=== PATIENT | male | born 1945 | race Caucasian/White ===

== ENCOUNTER 2018-04-01 11:09 | Emergency (ER) | payer OTHER ==
[2018-04-01] MEDS ORDERED: METHYLPREDNISOLONE 125 MG INJ ONE (12:15)
[2018-04-01] MEDS ORDERED: CEFTRIAXONE/SWI 1gm 1 GM/10 ML SYR ONE (12:16)
[2018-04-01] MEDS ORDERED: LEVALBUTEROL 1.25 MG/3 ML NEB ONE (12:16)
[2018-04-01] MEDS ORDERED: NA CHLORIDE 0.9% 1,000 ML ONE (12:16)
[2018-04-01 12:31] LABS: Absolute Lymphocytes (CBC) 1.1 K/uL (0.7-4.9); Absolute Monocytes 1.4 K/uL (0.1-1.3); Absolute Neutrophil 13.2 K/uL (1.8-8.0); Basophils % 0.1 % (0-1.3); Lymphocytes % 7.2 % (15.3-44.8); MCH 29.9 pg (27.0-35.0); MCV 88.7 fL (80-100); MPV 9.6 fL (7.6-11.3); Monocytes % 9.1 % (3.3-12.3); RBC Red Blood Cell Count 4.96 M/uL (4.33-5.43)
[2018-04-01 12:43] LABS: Albumin 3.6 g/dL (3.4-5.0); Bilirubin Direct 0.3 mg/dL (0-0.2); Bilirubin Total 0.8 mg/dL (0.2-1.0); Magnesium 2.5 mg/dL (1.8-2.4); Potassium 4.2 mmol/L (3.5-5.1); Protein, Total 7.8 g/dL (6.4-8.2)
--- NOTE | 2018-04-01 12:59 | RAD REPORT ---
EXAM DESCRIPTION: Yudelka Single View04/01/2018 12:19 pm CLINICAL HISTORY: cough COMPARISON: none FINDINGS: The lungs are moderately hyperaerated The lungs appear clear of acute infiltrate. The heart is normal size IMPRESSION: COPD without visualization of an acute abnormality
--- NOTE | 2018-04-01 13:55 | ER ---
Nurse's Notes [facility] Name: Rajesh Steen Age: 72 yrs Sex: Male : 1945 Arrival Date: 04/01/2018 Time: 11:13 Bed 8 Private MD: None, None Diagnosis: Acute kidney failure;Non-ST elevation (NSTEMI) myocardial infarction;Chronic obstructive pulmonary disease with (acute) exacerbation;Elevated white blood cell count;Weakness Presentation: 04/01 11:34 Presenting complaint: pts granddaughter states "he hates doctors, he has been sick for tw2 3 or 4 days now, n/v and labored breathing and has a cough but feels he cant get anything up". Transition of care: patient was not received from another setting of care. Onset of symptoms was April 01, 2018. Risk Assessment: Do you want to hurt yourself or someone else? Patient reports no desire to harm self or others. Initial Sepsis Screen: Does the patient meet any 2 criteria? RR > 20 per min. HR > 90 bpm. Does the patient have a suspected source of infection? Yes: Other: unproductive cough, wheezing, feels "i cant cough it up", sob, increased work of breathing If YES to both, name of provider notified: Peter Wilder MD. Care prior to arrival: None. 11:34 Acuity: MICHELLE 3 tw2 11:34 Method Of Arrival: Wheelchair tw2 Triage Assessment: 11:36 General: Appears distressed, Behavior is appropriate for age. Respiratory: Onset: The tw2 symptoms/episode began/occurred 3 or 4 days, the patient has moderate shortness of breath. Historical: - Allergies: 11:29 No Known Allergies; tw2 - Home Meds: 11:29 "herbal supplements and vitamins" [Active]; tw2 - PMHx: 11:29 Hypertension; Hernia; tw2 - PSHx: 11:29 None; tw2 - Immunization history:: Adult Immunizations. - Social history:: Smoking status: Smoking status: Patient uses tobacco products, smokes one pack cigarettes per day. - Ebola Screening: : Patient denies travel to an Ebola-affected area in the 21 days before illness onset. Screenin:20 Abuse screen: Denies threats or abuse. Nutritional screening: No deficits noted. tw2 Tuberculosis screening: No symptoms or risk factors identified. Fall Risk None identified. Assessment: 11:31 General: Appears distressed, slender. Pain: Denies pain. Neuro: Level of Consciousness tw2 is awake, alert, obeys commands, Oriented to person, place, time, situation. Cardiovascular: Denies chest pain, shortness of breath, Heart tones S1 S2 Capillary refill < 3 seconds Patient's skin is warm and dry. Rhythm is irregular. Respiratory: Airway is patent Respiratory effort is even, labored, with retractions, Respiratory pattern is tachypnea Breath sounds with wheezes bilaterally. Respiratory: Reports cough that is non-productive. GI: No signs and/or symptoms were reported involving the gastrointestinal system. Abdomen is flat, Bowel sounds present X 4 quads. : No signs and/or symptoms were reported regarding the genitourinary system. EENT: No signs and/or symptoms were reported regarding the EENT system. Derm: No signs and/or symptoms reported regarding the dermatologic system. Musculoskeletal: Range of motion: intact in all extremities. 12:21 Reassessment: Patient appears in no apparent distress at this time. No changes from tw2 previously documented assessment. Patient and/or family updated on plan of care and expected duration. Pain level reassessed. Patient is alert, oriented x 3, equal unlabored respirations, skin warm/dry/pink. 13:22 Reassessment: Patient appears in no apparent distress at this time. No changes from tw2 previously documented assessment. Patient and/or family updated on plan of care and expected duration. Pain level reassessed. Patient is alert, oriented x 3, equal unlabored respirations, skin warm/dry/pink. 13:59 Reassessment: recollect on lab, 2 attempts via lab , 2 attempts via [employer] tw2 unsuccessful, provider notified. waiting PTT collection prior to heparin, charge nurse notified and attempting at this time. 14:02 Reassessment: Patient appears in no apparent distress at this time. No changes from tw2 previously documented assessment. Patient and/or family updated on plan of care and expected duration. Pain level reassessed. Patient is alert, oriented x 3, equal unlabored respirations, skin warm/dry/pink. Vital Signs: 11:29 BP 123 / 94; Pulse 113; Resp 28; Temp 97.7(O); Pulse Ox 98% on R/A; Weight 65.77 kg tw2 (R); Height 6 ft. 0 in. (182.88 cm); Pain 0/10; 11:48 BP 112 / 92; Pulse 109; Resp 24; Pulse Ox 100% on 2 lpm NC; tw2 12:21 BP 119 / 96; Pulse 96; Resp 22; Pulse Ox 98% on Nebulizer Mask; tw2 13:30 BP 111 / 86; Pulse 96; Resp 17; Pulse Ox 100% on R/A; tw2 15:10 BP 115 / 89; Pulse 98; Resp 19; Pulse Ox 100% on R/A; tw2 11:29 Body Mass Index 19.67 (65.77 kg, 182.88 cm) tw2 11:29 pt placed on o2 via nc at 2L d/d increased WOB, will continue to monitor tw2 11:48 pt states "i feel better on the oxygen" tw2 ED Course: 11:13 Patient arrived in ED. mr 11:14 None, None is Private Physician. mr 11:20 Sylvia Tadeo RN is Primary Nurse. tw2 11:29 Peter Wilder MD is Attending Physician. kdr 11:30 Arm band placed on. tw2 11:30 Placed in gown. Bed in low position. Adult w/ patient. surveillance monitor on. Pulse ox on. tw2 NIBP on. 11:36 Triage completed. tw2 11:38 Missed attempt(s): 18 gauge in right antecubital area. per CORWIN Hawkins. tw2 12:05 Inserted saline lock: 22 gauge in left antecubital area, using aseptic technique. jb1 12:18 XRAY Chest (1 view) In Process Unspecified. EDMS 13:43 Attending Physician role handed off by Peter Wilder MD rashad 13:43 Stanislaw Hawkins MD is Attending Physician. rashad 15:05 Pereira cath inserted, using sterile technique, 16 Fr., by nv, balloon inflated, Patient ae1 tolerated well. 15:18 No provider procedures requiring assistance completed. Patient transferred, IV remains tw2 in place. Administered Medications: Discontinued: NS 0.9% 250 ml IV at bolus once; Then 80 ml/hr 12:13 Drug: Xopenex (3) 1.25 mg Route: Inhalation; ae1 12:15 Drug: SOLU-Medrol 60 mg Route: IVP; Site: left forearm; ae1 13:48 Follow up: Response: No adverse reaction tw2 12:18 Drug: NS 0.9% 250 ml Route: IV; Rate: bolus; Site: left forearm; ae1 12:18 Drug: Rocephin - (cefTRIAXone) 1 grams Route: IVPB; Infused Over: 30 mins; Site: left ae1 forearm; 13:52 CANCELLED (Duplicate Order): Lasix 20 mg IVP once rashad 14:20 Drug: ProTONIX 40 mg Route: IVP; Site: left forearm; tw2 15:18 Follow up: Response: No adverse reaction tw2 14:20 Drug: PlaVIX 300 mg Route: PO; tw2 15:00 Follow up: Response: No adverse reaction tw2 14:20 Drug: Lasix 40 mg Route: IVP; Site: left forearm; tw2 15:00 Follow up: Response: No adverse reaction tw2 14:22 Drug: Aspirin Chewable Tablet 324 mg Route: PO; tw2 15:18 Follow up: Response: No adverse reaction tw2 14:23 Drug: Heparin (TN-Bolus No thrombolytic) - HEParin 60 units/kg {Co-Signature: ae1 tw2 (Juaquin Tom RN).} Route: IVP; Site: left forearm; 15:18 Follow up: Response: No adverse reaction tw2 14:25 Drug: Heparin (TN Drip) 12 units/kg/hr - (HEParin 02118 units, D5W 500 ml) tw2 {Co-Signature: ae1 (Juaquin Tom RN).} Route: IV; Rate: calculated rate; Site: left forearm; 15:18 Follow up: IV Status: Infusion continued upon transfer ae1 Outcome: 13:55 ER care complete, transfer ordered by . rashad 15:18 Patient left the ED. ae1 15:18 Transferred by ground EMS to [facility]. tw2 15:18 Condition: stable 15:18 Instructed on the need for transfer. Signatures: Dispatcher [employer] James Doyle jb1 Stanislaw Hawkins MD MD cha Rittger, Kevin, MD MD kdr Rivera, Maria mr Wise, Tara, RN RN tw2 Juaquin Tom RN RN ae1 Juaquin Negro RN ae1 Corrections: (The following items were deleted from the chart) 14:05 13:59 Reassessment: recollect on lab, 2 attempts via lab , 2 attempts via [employer] tw2 unsuccessful, provider notified. waiting PTT collection prior to heparin tw2 15:11 15:10 BP 111 / 86; Pulse 96bpm; Resp 17bpm; Pulse Ox 100% RA; tw2 tw2
--- NOTE | 2018-04-01 13:55 | EDPHYS ---
Physician Documentation [facility] Name: Rajesh Steen Age: 72 yrs Sex: Male : 1945 Arrival Date: 04/01/2018 Time: 11:13 Bed 8 Private MD: None, None ED Physician Stanislaw Hawkins HPI: 04/01 12:07 This 72 yrs old Male presents to ER via Wheelchair with complaints of kdr Breathing Difficulty, Weakness, Vomiting/Diarrhea. 12:07 The patient has shortness of breath at rest, with light activity. Onset: The kdr symptoms/episode began/occurred The patient first became ill last Tuesday. 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 Since then, he has had worsening SOB and congestion. He has also had subjective fever, no sputum. Duration: The symptoms are continuous, and are steadily getting worse. The patient's shortness of breath is aggravated by coughing, exertion, light activity, supine position. Associated signs and symptoms: Pertinent positives: non-productive cough, diaphoresis, fever, nausea, vomiting, Diarrhea. Severity of symptoms: At their worst the symptoms were moderate in the emergency department the symptoms are unchanged. The patient has not experienced similar symptoms in the past. The patient has not recently seen a physician. Historical: - Allergies: 11:29 No Known Allergies; tw2 - Home Meds: 11:29 "herbal supplements and vitamins" [Active]; tw2 - PMHx: 11:29 Hypertension; Hernia; tw2 - PSHx: 11:29 None; tw2 - Immunization history:: Adult Immunizations. - Social history:: Smoking status: Smoking status: Patient uses tobacco products, smokes one pack cigarettes per day. - Ebola Screening: : Patient denies travel to an Ebola-affected area in the 21 days before illness onset. ROS: 12:07 Constitutional: Negative for weight loss - he has had subjective fever and rigors Eyes: kdr Negative for injury, pain, redness, and discharge, ENT: Negative for injury, pain, and discharge, Neck: Negative for injury, pain, and swelling, Abdomen/GI: Negative for abdominal pain, nausea, vomiting, diarrhea, and constipation, Back: Negative for injury and pain, : Negative for injury, bleeding, discharge, and swelling, MS/Extremity: Negative for injury and deformity, Skin: Negative for injury, rash, and discoloration, Neuro: Negative for headache, weakness, numbness, tingling, and seizure activity. Psych: Negative for depression, anxiety, suicide ideation, homicidal ideation, and hallucinations, Allergy/Immunology: Negative for hives, rash, and allergies, Endocrine: Negative for neck swelling, polydipsia, polyuria, polyphagia, and marked weight changes, Hematologic/Lymphatic: Negative for swollen nodes, abnormal bleeding, and unusual bruising. 12:07 Cardiovascular: Positive for palpitations, Negative for chest pain, edema, orthopnea, paroxysmal nocturnal dyspnea. 12:07 Respiratory: Positive for cough, "sounds productive", dyspnea on exertion, shortness of breath, at rest. wheezing, inspiratory, , Negative for hemoptysis, orthopnea, pleurisy. Exam: 12:07 Constitutional: This is a well developed, well nourished patient who is awake, alert, kdr and in mild distress. Head/Face: Normocephalic, atraumatic. Eyes: Pupils equal round and reactive to light, extra-ocular motions intact. Lids and lashes normal. Conjunctiva and sclera are non-icteric and not injected. Cornea within normal limits. Periorbital areas with no swelling, redness, or edema. Neck: Trachea midline, no thyromegaly or masses palpated, and no cervical lymphadenopathy. Supple, full range of motion without nuchal rigidity, or vertebral point tenderness. No Meningismus. Chest/axilla: Normal chest wall appearance and motion. Nontender with no deformity. No lesions are appreciated. Abdomen/GI: Soft, non-tender, with normal bowel sounds. No distension or tympany. No guarding or rebound. No evidence of tenderness throughout. Back: No spinal tenderness. No costovertebral tenderness. Full range of motion. Skin: Warm, dry with normal turgor. Normal color with no rashes, no lesions, and no evidence of cellulitis. MS/ Extremity: Pulses equal, no cyanosis. Neurovascular intact. Full, normal range of motion. Neuro: Awake and alert, GCS 15, oriented to person, place, time, and situation. Cranial nerves II-XII grossly intact. Motor strength 5/5 in all extremities. Sensory grossly intact. Cerebellar exam normal. Normal gait. Psych: Awake, alert, with orientation to person, place and time. Behavior, mood, and affect are within normal limits. 12:07 Cardiovascular: Rate: tachycardic, Rhythm: regular, Pulses: no pulse deficits are appreciated, Heart sounds: normal, Edema: is not appreciated. 12:07 Respiratory: mild respiratory distress is noted, Respirations: intercostal retractions, shallow respirations, that is mild, tachypnea, 24 Breath sounds: decreased breath sounds, that are moderate, rhonchi, are scattered, stridor, is not appreciated, + upper airway congestion. wheezing: that is mild, is scattered, is heard diffusely. Vital Signs: 11:29 BP 123 / 94; Pulse 113; Resp 28; Temp 97.7(O); Pulse Ox 98% on R/A; Weight 65.77 kg tw2 (R); Height 6 ft. 0 in. (182.88 cm); Pain 0/10; 11:48 BP 112 / 92; Pulse 109; Resp 24; Pulse Ox 100% on 2 lpm NC; tw2 12:21 BP 119 / 96; Pulse 96; Resp 22; Pulse Ox 98% on Nebulizer Mask; tw2 13:30 BP 111 / 86; Pulse 96; Resp 17; Pulse Ox 100% on R/A; tw2 15:10 BP 115 / 89; Pulse 98; Resp 19; Pulse Ox 100% on R/A; tw2 11:29 Body Mass Index 19.67 (65.77 kg, 182.88 cm) tw2 11:29 pt placed on o2 via nc at 2L d/d increased WOB, will continue to monitor tw2 11:48 pt states "i feel better on the oxygen" tw2 MDM: 12:07 Data reviewed: vital signs, nurses notes, lab test result(s), radiologic studies. kdr Counseling: I had a detailed discussion with the patient and/or guardian regarding: the historical points, exam findings, and any diagnostic results supporting the discharge/admit diagnosis, lab results, radiology results, the need for further work-up and treatment in the hospital. 13:43 Patient medically screened. [facility] 04/01 12:06 Order name: Basic Metabolic Panel; Complete Time: 13:21 kdr 04/01 12:06 Order name: CBC with Diff; Complete Time: 13:21 kdr 04/01 12:06 Order name: LFT's; Complete Time: 13:21 kdr 04/01 12:06 Order name: Magnesium; Complete Time: 13:21 kdr 04/01 12:06 Order name: NT PRO-BNP; Complete Time: 13:21 [facility] 04/01 12:06 Order name: PT-INR [facility] 04/01 12:06 Order name: Ptt, Activated kdr 04/01 12:06 Order name: Troponin (emerg Dept Use Only); Complete Time: 13:21 [facility] 04/01 12:06 Order name: XRAY Chest (1 view); Complete Time: 13:21 [facility] 04/01 12:06 Order name: Blood Culture Adult (2) [facility] 04/01 12:06 Order name: EKG; Complete Time: 12:07 kdr 04/01 12:06 Order name: Cardiac monitoring; Complete Time: 12:12 [facility] 04/01 12:06 Order name: EKG - Nurse/Tech; Complete Time: 12:12 [facility] 04/01 12:06 Order name: IV Saline Lock; Complete Time: 12:12 [facility] 04/01 12:06 Order name: Labs collected and sent; Complete Time: 12:12 [facility] 04/01 12:06 Order name: O2 Per Protocol; Complete Time: 12:12 [facility] 04/01 12:06 Order name: O2 Sat Monitoring; Complete Time: 12:13 [facility] 04/01 13:53 Order name: Bladder Scanner; Complete Time: 15:11 [facility] 04/01 15:10 Order name: Pereira; Complete Time: 15:11 [facility] Administered Medications: Discontinued: NS 0.9% 250 ml IV at bolus once; Then 80 ml/hr 12:13 Drug: Xopenex (3) 1.25 mg Route: Inhalation; ae1 12:15 Drug: SOLU-Medrol 60 mg Route: IVP; Site: left forearm; ae1 13:48 Follow up: Response: No adverse reaction tw2 12:18 Drug: NS 0.9% 250 ml Route: IV; Rate: bolus; Site: left forearm; ae1 12:18 Drug: Rocephin - (cefTRIAXone) 1 grams Route: IVPB; Infused Over: 30 mins; Site: left ae1 forearm; 13:52 CANCELLED (Duplicate Order): Lasix 20 mg IVP once rashad 14:20 Drug: ProTONIX 40 mg Route: IVP; Site: left forearm; tw2 15:18 Follow up: Response: No adverse reaction tw2 14:20 Drug: PlaVIX 300 mg Route: PO; tw2 15:00 Follow up: Response: No adverse reaction tw2 14:20 Drug: Lasix 40 mg Route: IVP; Site: left forearm; tw2 15:00 Follow up: Response: No adverse reaction tw2 14:22 Drug: Aspirin Chewable Tablet 324 mg Route: PO; tw2 15:18 Follow up: Response: No adverse reaction tw2 14:23 Drug: Heparin (CT-Bolus No thrombolytic) - HEParin 60 units/kg {Co-Signature: ae1 tw2 (Juaquin Tom RN).} Route: IVP; Site: left forearm; 15:18 Follow up: Response: No adverse reaction tw2 14:25 Drug: Heparin (CT Drip) 12 units/kg/hr - (HEParin 55394 units, D5W 500 ml) tw2 {Co-Signature: ae1 (Juaquin Tom RN).} Route: IV; Rate: calculated rate; Site: left forearm; 15:18 Follow up: IV Status: Infusion continued upon transfer ae1 Disposition: 04/01/18 13:55 Transfer ordered to [facility]. Diagnosis are Acute kidney failure, Non-ST elevation (NSTEMI) myocardial infarction, Chronic obstructive pulmonary disease with (acute) exacerbation, Elevated white blood cell count, Weakness. - Reason for transfer: Higher level of care. - Accepting physician is to [facility]. - Condition is Serious. - Problem is new. - Symptoms have improved. Signatures: Dispatcher [employer] Stanislaw Quiroga MD MD cha Rittger, Kevin, MD MD kdr Wise, Tara, RN RN tw2 Juaquin Tom RN RN ae1 Juaquin Tom RN ae1 Corrections: (The following items were deleted from the chart) 13:52 13:51 Lasix 20 mg IVP once ordered. rashad solorzano 15:18 13:55 04/01/2018 13:55 Transfer ordered to [facility]. Diagnosis is ae1 Acute kidney failure; Non-ST elevation (NSTEMI) myocardial infarction; Chronic obstructive pulmonary disease with (acute) exacerbation; Elevated white blood cell count; Weakness. Reason for transfer: Higher level of care. Accepting physician is to [facility]. Condition is Serious. Problem is new. Symptoms have improved. rashad
[2018-04-01] MEDS ORDERED: CLOPIDOGREL 75 MG TABLET ONE (14:12)
[2018-04-01] MEDS ORDERED: FUROSEMIDE 40 MG/4 ML VIAL ONE (14:12)
[2018-04-01] MEDS ORDERED: PANTOPRAZOLE 40 MG INJ ONE (14:12)
[2018-04-01] MEDS ORDERED: ASPIRIN 81 MG CHEWABLE TABLET ONE (14:12)
[2018-04-01] MEDS ORDERED: HEPARIN 5000 UNIT/ML 1 ML VIAL ONE (14:12)
[2018-04-01] MEDS ORDERED: HEPARIN/D5W 25,000 UNIT/500 ML BAG IV ONE (14:20)
[2018-04-01 14:58] LABS: Protime INR 1.17
[2018-04-01] MEDS ORDERED: LIDOCAINE VISCOUS 2% SOLN 15 ML UDC ONE (15:01)
--- NOTE | 2018-04-02 10:56 | EKG ---
Test Date: 2018-04-01 Test Time: 11:30:03 Goggles Assembler: JUDITH MEASUREMENT RESULTS: Intervals: Rate: 109 IL: 456 QRSD: 100 QT: 350 QTc: 471 [place]: P: 95 IL: 456 QRS: 95 T: 87 INTERPRETIVE STATEMENTS: Sinus tachycardia with 1st degree AV block Rightward axis Minimal voltage criteria for LVH, may be normal variant Marked ST abnormality, possible anterolateral subendocardial injury Abnormal ECG No previous ECG available for comparison Electronically Signed On 04-02-18 10:56:25 CDT by Jose Mccarthy
== END 2018-04-01 15:18 | disposition short-term general hospital (02) ==
LOC: ER 11:09
DX: J44.1 Chronic obstructive pulmonary disease with (acute) exacerbation (principal); I21.4 Non-ST elevation (NSTEMI) myocardial infarction; N17.9 Acute kidney failure, unspecified; D72.829 Elevated white blood cell count, unspecified; R53.1 Weakness; F17.210 Nicotine dependence, cigarettes, uncomplicated; I10 Essential (primary) hypertension
CPT/HCPCS: 36415; 51702; 71045; 80048; 80076; 83735; 83880; 84484; 85025; 85610; 85730; 87040 ×2; 93005; 96365; 96375; 99285; C9113; J0696; J1644; J2930; J7030